=== PATIENT | female | born 1990 | race Caucasian/White ===

== ENCOUNTER 2017-03-06 23:54 | Emergency (ER) | payer BC ==
[~2017-03-06] VITALS: Ht 157.5 cm; Wt 59.0 kg
--- NOTE | 2017-03-07 01:30 | NUR ---
Pt to room and c/o redness, swelling and pain to touch to right upper arm just above the elbow. Pt sts arm feels heavy and in general numbness unless affected area is being touched. Pt sts she had something similiar from a bee sting 7-8 days ago. Completed ABTs and it resolved. Resp even and unlabored. No obvious signs of distress. Pt resting in position of comfort for self. Awaiting further eval.
[2017-03-07] MEDS ORDERED: diphenhydrAMINE 50 MG/1 ML VIAL IV ONE (02:15)
[2017-03-07] MEDS ORDERED: methylPREDNISolone SOD SUCC 125 MG/2 ML VIAL IV ONE (02:15)
[2017-03-07] MEDS ORDERED: FAMOTIDINE. 20 MG/2 ML VIAL IV ONE ×2 (02:15→02:35)
[2017-03-07] MEDS ORDERED: CEPHALEXIN MONOHYDRATE 500 MG CAPSULE PO ONE (02:15)
[2017-03-07] MEDS ORDERED: CEPHALEXIN MONOHYDRATE 500 MG CAPSULE ONE (02:28)
[2017-03-07] MEDS ORDERED: methylPREDNISolone SOD SUCC 125 MG/2 ML VIAL ONE (02:28)
[2017-03-07 02:35] LABS: BASOPHILS % (AUTO) 0.2 % (0.0-2.0); EOSINOPHILS # (AUTO) 0.3 K/uL (0.0-0.7); EOSINOPHILS % (AUTO) 3.5 % (0.0-7.0); HEMATOCRIT 37.2 % (37-47); HEMOGLOBIN 12.8 G/DL (12.0-16.0); LYMPHOCYTES # (AUTO) 3.5 K/UL (0.8-4.8); LYMPHOCYTES % (AUTO) 38.1 % (20.5-51.5); MEAN CORPUSCULAR HEMOGLOBIN 30.8 UUG (27.0-31.0); MEAN CORPUSCULAR HGB CONC 34 g/dL (32.0-37.0); MEAN CORPUSCULAR VOLUME 89.7 FL (81.0-99.0); MONOCYTES # (AUTO) 0.6 K/UL (0.1-1.30); MONOCYTES % (AUTO) 6.1 % (0.0-11.0); NEUTROPHILS # (AUTO) 4.8 K/UL (1.8-8.9); NEUTROPHILS % (AUTO) 52.1 % (38.5-71.5); PLATELET COUNT (AUTO) 166 K/UL (150-450); RED BLOOD CELL COUNT(AUTO) 4.15 MIL/UL (4.2-5.4); WHITE BLOOD COUNT (AUTO) 9.2 K/UL (4.0-11.2)
[2017-03-07] MEDS ORDERED: diphenhydrAMINE 50 MG/1 ML VIAL ONE (02:35)
--- NOTE | 2017-03-07 02:40 | NUR ---
Pt seen by . Pt medicated for discomfort, will monitor for effects of medication.
[2017-03-07] MEDS ORDERED: KETOROLAC TROMETHAMINE 30 MG INJ IVP ONE (02:45)
[2017-03-07 02:48] LABS: BILIRUBIN,DIRECT 0.1 mg/dL (0.0-0.2); BILIRUBIN,TOTAL 0.4 mg/dL (0.2-1.0); CREATININE 0.6 mg/dL (0.6-1.3); POTASSIUM 3.8 mmol/L (3.5-5.1); TOTAL PROTEIN, SERUM 7.3 g/dL (6.4-8.2)
[2017-03-07] MEDS ORDERED: KETOROLAC TROMETHAMINE 30 MG INJ ONE (02:49)
--- NOTE | 2017-03-07 03:15 | NUR ---
Pt sts she is feeling better. Pt stable for discharge per MD. IV dc'd, catheter intact. Drsg applied. No problems noted to site. Pt given ACI. Pt verbalized understanding of dc instructions. Pt ambulated out of er with steady gait and ride home
[2017-03-07 05:26] VITALS: BP 110/68
== END 2017-03-07 03:15 | disposition home or self-care (01) ==
LOC: ER 03-07
DX: L03.113 Cellulitis of right upper limb (principal)
CPT/HCPCS: 36415; 84703; 85025; A4663; J1200; J1885; J2930; J3490; J7030

== ENCOUNTER 2024-10-05 22:57 | Emergency (ER) | payer BC | END 2024-10-06 00:01 | disposition left against medical advice (07) | LOC: ER 23:03 | DX: R11.10 Vomiting, unspecified (principal); Z53.21 Procedure and treatment not carried out due to patient leaving prior to being seen by health care provider ==